=== PATIENT | female | born 1955 | race Two or more races ===

== ENCOUNTER 2022-02-26 05:23 | Day surgery (SDC) | payer OTHER ==
[~2022-02-26 05:23] MED LIST: LOTREL 10-20 M1 EACH PO
[2022-02-26] MEDS ORDERED: PERCOCET 5-3251 EACH PO (14:54)
[2022-02-26] MEDS ORDERED: COLACE100 MG PO (14:54)
== END 2022-02-26 16:50 | disposition home or self-care (01) ==
LOC: CIR.AMB 05:23
PROVIDERS: ATTEND Surgery
DX: C44.590 Other specified malignant neoplasm of anal skin (principal); L29.0 Pruritus ani; K62.89 Other specified diseases of anus and rectum; K62.5 Hemorrhage of anus and rectum; I10 Essential (primary) hypertension